=== PATIENT | female | born 1970 ===

== ENCOUNTER 2016-11-22 04:57 | Observation (INO) | payer BC, OTHER ==
[2016-11-11 14:53] VITALS: BMI 36.0
[2016-11-22] VITALS (10 sets, daily range): BP systolic 110–138; BP diastolic 71–91; PULSE 77–100; TEMP 36.5–36.9; O2SAT 94–97; Ht 162.6 cm; Wt 94.5 kg
[~2016-11-22] VITALS: Ht 162.6 cm; Wt 94.5 kg
[~2016-11-22 04:57] MED LIST: DEXT10CA PO; MAGNESIUM PO; MULT-506 PO; PROM25TA9 PO; RIBO100T9 PO; TOPI50TA16 PO; VENL75CA PO
[2016-11-22] MEDS ORDERED: LACTATED RINGER'S 1000ML 1,000 ML IV SCH (06:00)
[2016-11-22] MEDS ORDERED: SUCCINYLCHOLINE CHLORIDE 20 MG/ML 10 ML VIAL IV ONE (06:52)
[2016-11-22] MEDS ORDERED: FENTANYL CITRATE INJ 50 MCG/1 ML 2 ML VIAL ONE (06:52)
[2016-11-22] MEDS ORDERED: LIDOCAINE HCL 2% 2 ML VIAL (20MG/ML) ONE (06:52)
[2016-11-22] MEDS ORDERED: MIDAZOLAM HCL 1 MG/ML 2ML VIAL ONE (06:52)
[2016-11-22] MEDS ORDERED: DEXAMETHASONE SOD INJ 4 MG/ML VIAL ONE (06:52)
[2016-11-22] MEDS ORDERED: ONDANSETRON INJ 2 MG/ML 2 ML VIAL ONE (06:52)
[2016-11-22] MEDS ORDERED: PROPOFOL IV EMULSION 10 MG/ML 20 ML VIAL IV ONE ×2 (06:52→07:52)
[2016-11-22] MEDS ORDERED: EpINEphrine INJ 1MG/ML AMP 1 MG/ML AMP ONE (07:01)
[2016-11-22] MEDS ORDERED: LIDOCAINE/EPINEPHRINE 1% 20 ML VIAL ONE (07:01)
--- NOTE | 2016-11-22 07:02 | History and Physical ---
History & Physical Date Nov 22, 2016. History of Present Illness The patient is a 46 year old female with complaints of multinodular goiter with compressive symptoms. She has large left sided nodule that extends to the isthmus. She desires thyroid surgery for removal of the large left sided and isthmus nodule. Additional History Hepatic Disease: No Endocrine Disorder: No Kidney Disease: No Hypertension: No Heart Disease: No Bleeding Tendencies: No Infectious Diseases: No Allergies Coded Allergies: No Known Allergies (Unverified , 11/22/16) Home Medications Scheduled Dextroamphetamine Sulfate (Dexedrine), 10 MG PO QAM Multivitamin (Multivitamin), 1 TAB PO QAM Riboflavin (Vitamin B-2), 400 MG PO QAM Topiramate (Topamax), 50 MG PO HS Venlafaxine Hcl (Effexor Xr), 1 CAP PO QAM [Magnesium], 250 MG PO BID Scheduled PRN Promethazine Hcl (Phenergan), 25 MG PO Q6H PRN for Nausea Physical Examination Skin: warm/dry, no rash Eyes: normal inspection, EOMI, sclerae normal ENT: + pertinent finding (palpable thyroid nodule) Head: normocephalic, atraumatic Neck: supple, no adenopathy, trachea midline Respiratory/Chest: lungs clear, normal breath sounds, no respiratory distress Cardiovascular: regular rate, rhythm, no edema, no murmur Diagnosis Multinodular goiter, compressive symptoms due to left sided thyroid nodule and isthmus. Plan of Treatment Proceed with left hemithyroidectomy and isthmusectomy. Had discussion with patient regarding her US findings of left sided and isthmus nodule that is the likely source of compression and no large nodules on the right. she would like to avoid thyroid hormone if possible so mutual decision to go ahead with left hemithyroidectomy made today.
[2016-11-22] MEDS ORDERED: EpHEDrine SULFATE INJ 50 MG/ML AMP IV PRN (07:15)
[2016-11-22] MEDS ORDERED: ONDANSETRON INJ 2 MG/ML 2 ML VIAL IV PRN ×2 (07:15→09:45)
[2016-11-22] MEDS ORDERED: ATROPINE SULFATE 0.1 MG/ML 5ML SYR IV PRN (07:15)
[2016-11-22] MEDS ORDERED: PHENYLEPHRINE 100MCG/ML 5ML SYR IV PRN (07:15)
[2016-11-22] MEDS ORDERED: HYDROmorphone INJ 2 MG/ML SYR/VIAL ONE (07:38)
[2016-11-22] MEDS ORDERED: EpHEDrine SULFATE INJ 50 MG/ML AMP ONE (07:52)
[2016-11-22] MEDS ORDERED: ARISTA ABSORBABLE HEMOSTAT 3GM TOP ONE (09:04)
[2016-11-22] MEDS ORDERED: SURGICEL FIBRILLAR HEMOSTAT 1 X 2IN TOP ONE (09:04)
--- NOTE | 2016-11-22 09:37 | [facility] Post Operative Brief Note ---
Immediate Operative Summary Operative Date Nov 22, 2016. Pre-Operative Diagnosis Multinodular goiter, compressive symptoms due to left sided thyroid nodule and isthmus Post-Operative Diagnosis Multinodular goiter, compressive symptoms due to left sided thyroid nodule and isthmus Procedure(s) Performed left hemithyroidectomy and isthmusectomy Surgeon Dr. Vadim Paniagua Food Analyst Surgeon(s) Rosa Isela Griffiths PA-C Estimated Blood Loss 20 ML Findings Large left thyroid nodule extending into the isthmus. Specimens A. Thyroid lobe and isthmus-stitch in superior pole Drains none Anesthesia GETA Complication(s) None Disposition Recovery Room / PACU
--- NOTE | 2016-11-22 09:43 | Discharge Instructions ---
Discharge Instructions Admission Reason for Admission: Goiter Discharge Discharge Diagnosis / Problem: thyroid nodule Discharge Goals Goal(s): Improve function, Diagnostic testing Activity Recommendations Activity Limitations: as noted below Lifting Limitations: no more than 5 pounds Exercise/Sports Limitations: until after follow-up appointment May Resume Sexual Activity: after two weeks Shower/Bathe: keep incision dry No strenuous activity for 2 weeks Call for any numbness or tingling around the lips or fingertips that does not go away after 20 minutes of rest as this may be a sign of low calcium Keep incision dry If you would like to shower please place a washcloth over the neck and wrap the neck in saran wrap Call for any spreading redness or swelling of the incision Take pain medication as directed No NSAIDs for 2 weeks . Instructions / Follow-Up Instructions / Follow-Up No strenuous activity for 2 weeks Call for any numbness or tingling around the lips or fingertips that does not go away after 20 minutes of rest as this may be a sign of low calcium Keep incision dry If you would like to shower please place a washcloth over the neck and wrap the neck in saran wrap Call for any spreading redness or swelling of the incision Take pain medication as directed No NSAIDs for 2 weeks Current Hospital Diet Patient's current hospital diet: Regular Diet Discharge Diet Recommended Diet: Regular Diet Procedures Procedures Performed: left hemithyroidectomy and isthmusectomy Pending Studies Studies pending at discharge: no Medical Emergencies . Who to Call and When: Medical Emergencies: If at any time you feel your situation is an emergency, please call 911 immediately. . Non-Emergent Contact Non-Emergency issues call your: Specialist Contact Number: [phone] . . "Provider Documentation" section prepared by Vadim Paniagua. VTE Core Measure Inpt VTE Proph given/why not?: Treatment not indicated [place] Drug Monitoring Program Search Results: patient reviewed within database, no issues identified
[2016-11-22] MEDS ORDERED: OXYC-57 PO (09:44)
[2016-11-22] MEDS ORDERED: OXYCODONE/ACETAMINOPHEN 5-325 TAB PO PRN (09:45)
[2016-11-22] MEDS ORDERED: PROMETHAZINE HCL 25 MG TAB PO PRN (09:45)
[2016-11-22] MEDS ORDERED: ESMOLOL HCL 10 MG/ML 10 ML VIAL ONE (09:48)
[2016-11-22] MEDS ORDERED: LABETALOL HCL IV 5 MG/ML 20ML ONE (09:48)
[2016-11-22] MEDS: HYDROmorphone INJ 2 MG/ML SYR/VIAL IV PRN ×3 (10:08→10:28)
--- NOTE | 2016-11-22 10:23 | OPERATIVE REPORT ---
DATE OF OPERATION: 11/22/2016 PREOPERATIVE DIAGNOSIS: Multinodular goiter with large left thyroid nodule that extended to the isthmus. POSTOPERATIVE DIAGNOSIS: Same. PROCEDURE: Left hemithyroidectomy and isthmusectomy, recurrent laryngeal nerve monitoring. SPECIMENS: 1. Left thyroid lobe and isthmus sent to surgical pathology. COMPLICATIONS: None. DRAINS: None. ESTIMATED BLOOD LOSS: 20 mL. IV FLUIDS: 1300 mL. URINE OUTPUT: 0 mL. FINDINGS: See body of operative report. ANESTHESIA: General endotracheal anesthesia. SURGEON: Vadim Paniagua DO. ASSISTANTS: Rosa Isela Griffiths, physician administrative assistant data entry. INDICATION HISTORY: A 46-year-old female who presented to the office with a large left thyroid nodule that extended to the isthmus. Ultrasound guided needle biopsy was consistent with a benign thyroid nodule. The patient was complaining of compressive symptoms as well as a cosmetic appearance bothering her as it was easily visible in the anterior neck. I discussed the options with her including observation versus consideration of surgery for excision. She desired surgical excision. I then discussed the options of this for surgery including a left hemithyroidectomy versus a near total thyroidectomy. The patient stated that she wanted to see if her hemithyroidectomy would prevent her from having to go on thyroid hormone, which she does not like to take medications if not needed. I thought this was reasonable as the right lobe was not enlarged and only had a very small thyroid nodule within it, left lobe was the enlarged side with a large nodule that extended to the isthmus. Thus, it was mutually decided to proceed with a left hemithyroidectomy and isthmusectomy. DESCRIPTION OF THE OPERATION: The patient brought to the operating room, identified, procedure verified, she underwent general endotracheal anesthesia. With the nerve integrity monitoring system, she was prepped and draped in usual sterile fashion for thyroid surgery. SCDs were in place prior to start of the case. The nerve-monitoring system was noted to be in good working order prior to the start of the case by the nerve-monitoring service. At this point, incision was delineated with a marking pen on skin and injected with 1% lidocaine 1:100,000 epinephrine. Incision was carried down with a 15 blade through skin and subcutaneous tissue down to the level of the platysma. Superior and inferior subplatysmal flaps were then raised in the usual fashion. Once this was done, the midline raphae was identified, it was divided and attention was directed to the left hand side. Upon division of the midline raphae, the large nodule was easily palpable and visible. It was essentially taking up the entire isthmus as well as a portion of the left thyroid lobe. At this point, attention was directed to the superior pole on the left which was taken down in the usual fashion with blunt dissection with hemostats as well as the harmonic arron. Surgical clips were used for hemostasis of the superior pole vessels. Once the superior pole was mobilized, attention was directed inferiorly into the visceral vertebral angle. The gland was retracted medially to expose the visceral vertebral angle and dissection proceeded from an inferior to superior direction. The recurrent laryngeal nerve was identified visually and it was stimulated with a Prass probe and confirmed that indeed it was a recurrent laryngeal nerve. This was dissected from inferior to superior to its entrance into the cricothyroid joint. During this portion of the dissection, the inferior parathyroid on the left hand side was identified and it was preserved. Dissection then proceeded along Garcia ligament taken down and the remaining fascial attachments of the thyroid gland to the trachea. Circumferential dissection was then performed to further mobilize the gland. At this point, harmonic arron were used to remove the isthmus up to the start of the right lobe of the thyroid. Once this was performed, the entire left lobe and isthmus including the large thyroid nodule were removed and sent to surgical pathology. A stitch was placed in the superior pole on the left to gladys it. At this point, hemostasis was assured, several Valsalva maneuvers were performed and no active bleeding was identified. Irrigation of the wound was performed liberally and at this point, the recurrent laryngeal nerve was stimulated as proximal as possible and confirmed that it was indeed intact with a brisk response. At this point, fibrillar as well as Isabel hemostatic powder was placed into the wound and it was closed in the usual fashion with 3-0 Vicryl for the deep layer, 3-0 Vicryl for the platysmal layer, as well as several interrupted 4-0 Vicryls for the subdermal layer, subcuticular layer was closed with a running 4-0 barbed suture. The skin was closed with Dermabond and a Steri-Strip was applied. At this point, the patient was turned to anesthesia. She was awakened, extubated and taken to recovery unit in stable condition. I attest to the content of the Intraoperative Record and any orders documented therein. Any exceptio ns are noted below.
[2016-11-22] MEDS ORDERED: IV FLUIDS COMPLETED PRN (10:30)
--- NOTE | 2016-11-22 11:42 | Ears,Nose,Throat Progress Note ---
Progress Note Date of Service Nov 22, 2016. Subjective Pt evaluation today including: conversation w/ patient, physical exam Patient is s/p left hemithyroidectomy and isthmusectomy for large left sided nodule that extended to the isthmus causing compressive symptoms, POD 0. She is doing well post op. Expected discomfort, but tolerable. Has ambulated already. Tolerating liquids thus far. Objective Vital Signs Date Time Temp Pulse Resp B/P Pulse Ox O2 Delivery O2 Flow Rate FiO2 11/22/16 10:40 36.4 85 13 144/79 97 Nasal Cannula 2 11/22/16 10:35 86 12 94 11/22/16 10:35 86 12 11/22/16 10:33 139/85 11/22/16 10:30 90 22 98 11/22/16 10:30 90 22 11/22/16 10:28 140/88 11/22/16 10:25 86 12 97 11/22/16 10:25 86 12 11/22/16 10:23 139/86 11/22/16 10:20 95 20 11/22/16 10:20 93 20 98 11/22/16 10:18 143/91 11/22/16 10:15 91 18 97 11/22/16 10:15 90 18 11/22/16 10:13 147/95 11/22/16 10:10 97 17 95 11/22/16 10:10 96 17 11/22/16 10:09 149/93 11/22/16 10:08 149/93 11/22/16 10:05 93 13 11/22/16 10:05 92 13 95 11/22/16 10:03 132/106 11/22/16 10:00 99 15 11/22/16 10:00 101 15 95 11/22/16 09:58 157/95 11/22/16 09:55 94 15 144/91 99 11/22/16 09:55 95 15 11/22/16 09:53 104/90 11/22/16 09:50 92 14 99 11/22/16 09:50 93 14 11/22/16 09:48 137/96 11/22/16 09:45 105 17 11/22/16 09:45 103 17 98 11/22/16 09:45 37.1 101 16 143/92 99 Mask 10 2/13/17 05:31 36.9 77 18 117/76 96 Room Air Physical Exam General Appearance: WD/WN, no apparent distress Eyes: PERRL, EOMI Neck: + pertinent finding (Incision intact, flaps flat, no fluid collection. Steri strip in place. ) Neurologic/Psychiatric: + pertinent finding (chvostek negative) Assessment and Plan 46 yo female s/p left hemithyroidectomy and isthmusectomy for large left nodule that extended into the isthmus causing compressive symptoms, POD 0 - doing well - advance diet as tolerated - ambulate - discharge planning for tomorrow am if continues to do well
[2016-11-22] MEDS: SODIUM CHLORIDE 0.9% 1000ML 1,000 ML IV SCH (12:01)
--- NOTE | 2016-11-22 12:38 | Anesthesiology Progress Note ---
Anesthesia Post Op Note Date & Time Nov 22, 2016 at 12:38 Vital Signs Pain Intensity: 5.0 Vital Signs Past 12 Hours Date Time Temp Pulse Resp B/P Pulse Ox O2 Delivery O2 Flow Rate FiO2 11/22/16 12:02 36.5 90 18 131/71 97 Nasal Cannula 11/22/16 11:58 84 16 131/71 96 Nasal Cannula 2.0 11/22/16 11:54 95 Room Air 11/22/16 11:30 36.5 93 18 124/83 95 Room Air 11/22/16 11:00 96 Nasal Cannula 2.0 11/22/16 11:00 96 Nasal Cannula 2.0 11/22/16 11:00 36.7 88 16 125/74 96 Nasal Cannula 2.0 11/22/16 10:40 36.4 85 13 144/79 97 Nasal Cannula 2 11/22/16 10:35 86 12 94 11/22/16 10:35 86 12 11/22/16 10:33 139/85 11/22/16 10:30 90 22 98 11/22/16 10:30 90 22 11/22/16 10:28 140/88 11/22/16 10:25 86 12 97 11/22/16 10:25 86 12 11/22/16 10:23 139/86 11/22/16 10:20 95 20 11/22/16 10:20 93 20 98 11/22/16 10:18 143/91 11/22/16 10:15 91 18 97 11/22/16 10:15 90 18 11/22/16 10:13 147/95 11/22/16 10:10 97 17 95 11/22/16 10:10 96 17 11/22/16 10:09 149/93 11/22/16 10:08 149/93 11/22/16 10:05 93 13 11/22/16 10:05 92 13 95 11/22/16 10:03 132/106 11/22/16 10:00 99 15 11/22/16 10:00 101 15 95 11/22/16 09:58 157/95 11/22/16 09:55 94 15 144/91 99 11/22/16 09:55 95 15 11/22/16 09:53 104/90 11/22/16 09:50 92 14 99 11/22/16 09:50 93 14 11/22/16 09:48 137/96 11/22/16 09:45 105 17 11/22/16 09:45 103 17 98 11/22/16 09:45 37.1 101 16 143/92 99 Mask 10 11/22/16 05:31 36.9 77 18 117/76 96 Room Air Notes Mental Status: alert / awake / arousable, participated in evaluation Pt Amnestic to Procedure: Yes Nausea / Vomiting: adequately controlled Pain: adequately controlled Airway Patency, RR, SpO2: stable & adequate BP & HR: stable & adequate Hydration State: stable & adequate Anesthetic Complications: no major complications apparent
[2016-11-22] MEDS: OXYCODONE/ACETAMINOPHEN 5-325 TAB PO PRN (12:51)
[2016-11-22] MEDS ORDERED: PNEUMOCOCCAL POLYSACCHARIDES 25 MCG/0.5 ML VIAL/SYR IM. ONE (14:45)
[2016-11-22] MEDS ORDERED: PNEUMOCOCCAL ADMINISTRATION CHARGE ONE (14:45)
[2016-11-22] MEDS: MoRPHine SULFATE 2 MG/ML CARP IV PRN ×3 (15:16→23:42)
[2016-11-22] MEDS: MAGNESIUM OXIDE 400 MG TAB PO SCH (20:28)
[2016-11-22] MEDS ORDERED: TOPIRAMATE 50 MG TAB PO SCH (21:00)
[2016-11-23 03:41] VITALS: BP 97/61; PULSE 86; TEMP 36.7; O2SAT 97
[2016-11-23] MEDS: SODIUM CHLORIDE 0.9% 1000ML 1,000 ML IV SCH (05:34)
[2016-11-23 07:28] VITALS: BP 97/65; PULSE 75; TEMP 36.7; O2SAT 99
--- NOTE | 2016-11-23 07:42 | Ears,Nose,Throat Progress Note ---
Progress Note Date of Service Nov 23, 2016. Subjective Pt evaluation today including: conversation w/ patient, physical exam, chart review Did well overnight. No issues. Tolerating diet. No paraesthesias Objective Vital Signs Date Time Temp Pulse Resp B/P Pulse Ox O2 Delivery O2 Flow Rate FiO2 11/23/16 03:41 36.7 86 16 97/61 97 Room Air 11/22/16 23:48 Room Air 11/22/16 23:10 36.6 82 18 110/71 97 Room Air 11/22/16 18:50 36.6 100 20 125/75 94 Room Air 11/22/16 15:15 Room Air 11/22/16 14:07 36.5 78 18 138/89 96 Nasal Cannula 11/22/16 13:04 36.6 80 95 134/91 95 Nasal Cannula 11/22/16 12:02 36.5 90 18 131/71 97 Nasal Cannula 11/22/16 11:58 84 16 131/71 96 Nasal Cannula 2.0 11/22/16 11:54 95 Room Air 11/22/16 11:30 36.5 93 18 124/83 95 Room Air 11/22/16 11:00 96 Nasal Cannula 2.0 11/22/16 11:00 96 Nasal Cannula 2.0 11/22/16 11:00 36.7 88 16 125/74 96 Nasal Cannula 2.0 11/22/16 10:40 36.4 85 13 144/79 97 Nasal Cannula 2 11/22/16 10:35 86 12 94 11/22/16 10:35 86 12 11/22/16 10:33 139/85 11/22/16 10:30 90 22 98 11/22/16 10:30 90 22 11/22/16 10:28 140/88 11/22/16 10:25 86 12 97 11/22/16 10:25 86 12 11/22/16 10:23 139/86 11/22/16 10:20 95 20 11/22/16 10:20 93 20 98 11/22/16 10:18 143/91 11/22/16 10:15 91 18 97 11/22/16 10:15 90 18 11/22/16 10:13 147/95 11/22/16 10:10 97 17 95 11/22/16 10:10 96 17 2/13/17 10:09 149/93 11/22/16 10:08 149/93 11/22/16 10:05 93 13 11/22/16 10:05 92 13 95 11/22/16 10:03 132/106 11/22/16 10:00 99 15 11/22/16 10:00 101 15 95 11/22/16 09:58 157/95 11/22/16 09:55 94 15 144/91 99 11/22/16 09:55 95 15 11/22/16 09:53 104/90 11/22/16 09:50 92 14 99 11/22/16 09:50 93 14 11/22/16 09:48 137/96 11/22/16 09:45 105 17 11/22/16 09:45 103 17 98 11/22/16 09:45 37.1 101 16 143/92 99 Mask 10 Physical Exam General Appearance: WD/WN, no apparent distress Eyes: EOMI ENT: normal ENT inspection Neck: + pertinent finding (steri strip in place, flaps are flat. No collections. ) Respiratory/Chest: no respiratory distress, no accessory muscle use Neurologic/Psychiatric: + pertinent finding (chvostek negative) Assessment and Plan 46 yo female s/p left hemithyroidectomy and isthmusectomy for large left nodule that extended into the isthmus causing compressive symptoms, POD 1 - doing well - discharge home - f/u next week in my office as directed
--- NOTE | 2016-11-23 07:46 | Discharge Summary ---
Discharge Summary Admission Date: Nov 22, 2016 at 09:45 Discharge Date: Nov 22, 2016 Discharge Disposition: Home Primary Diagnosis: thyroid nodule Procedures: left hemithyroidectomy and isthmusectomy Discharge Instructions Last Recorded Wt (Kilograms): 94.500 Activity Recommendations: limitations (no strenuous activity for 2 weeks) Return to School/Work: limitations (one week) Diet At Discharge: Regular Allergies: Coded Allergies: No Known Allergies (Unverified , 11/22/16) Home Health Services: none Special Care: Call your doctor if: * Temperature above 101 degrees * Pain not relieved by pain medicine ordered * There is increased drainage or redness from any incision * You have any unanswered questions or concerns. Avoid all tobacco products. If you need help to stop smoking, call [place]'s FREE QUITLINE at . This is a free call. Admission Information Admission HPI: Patient with large left thyroid nodule extending to isthmus causing compressive symptoms. FNA benign cytology. She desired excision to relieve compressive symptoms. Admission Physical Exam: Gen: AAOx3. NAD Neck: Visible and palpable left thyroid nodule extending to isthmus Lungs: CTAB Heart: RRR Hospital Course Patient admitted for observation after undergoing left hemithyroidectomy and isthmusectomy. She did well overnight, tolerating diet, ambulating in hallway. No issues. She was discharged home on POD 1. Total time spent on discharge = This includes examination of the patient, discharge planning, medication reconciliation, and communication with other providers.
[2016-11-23] MEDS: OXYCODONE/ACETAMINOPHEN 5-325 TAB PO PRN ×2 (08:02→08:54)
[2016-11-23] MEDS: MAGNESIUM OXIDE 400 MG TAB PO SCH (08:50)
[2016-11-23] MEDS ORDERED: VENLAFAXINE HCL XR 75 MG CAPXR PO SCH (09:00)
[2016-11-23] MEDS ORDERED: NON-FORMULARY MEDICATION (Riboflavin (Vitamin B-2) 400 MG) PO SCH (09:00)
[2016-11-23 10:08] VITALS: BP 97/65; PULSE 75; TEMP 36.7; O2SAT 99
== END 2016-11-23 10:29 | disposition home or self-care (01) ==
LOC: ENRESERVDT → ENRESERVTM → C.ACU 04:57 → C.MSW 09:45
PROVIDERS: ADMIT Otolaryngology; ATTEND Otolaryngology
DX: D34 Benign neoplasm of thyroid gland (principal); E04.2 Nontoxic multinodular goiter